=== PATIENT | female | born 1945 | race Caucasian/White ===

== ENCOUNTER 2018-02-13 12:38 | Emergency (ER) | payer MEDICARE ==
[2018-02-13 15:56] LABS: ABS Basophils 0 10^3/ul (0-0.2); ABS Eosinophils 0.1 10^3/ul (0-0.6); ABS Lymphocytes 0.9 10^3/ul (1.0-4.8); ABS Monocytes 1.1 10^3/ul (0-0.8); ABS Nucleated RBC 0 10^3/ul; Hematocrit 39 % (35-47); Hemoglobin 13.2 g/dl (12.0-16.0); Mean Corpuscular HGB Conc 34 g/dl (31-36); Mean Corpuscular Hemoglobin 30 pg (27-31); Mean Corpuscular Volume 88 fL (80-97); Mean Platelet Volume 7.8 fL (7.4-10.4); Nucleated Red Blood Cells % 0.1; Platelet Count 287 10^3/ul (150-450); Red Blood Count 4.46 10^6/ul (4.00-5.40); Red Cell Distribution Width 14 % (10.5-15); White Blood Count 9.1 10^3/ul (3.5-10.8)
[2018-02-13 16:15] LABS: Albumin 3.9 g/dL (3.2-5.2); BUN/Creatinine Ratio 21.3 (8-20); C Reactive Protein 293.75 mg/L (<8.01); Calcium 9.4 mg/dL (8.6-10.3); EGFR Non-African American 75.7 (>60); Globulin 3.8 g/dL (2-4); Potassium 3.8 mmol/L (3.5-5.0); Total Bilirubin 0.6 mg/dL (0.2-1.0); Total Protein 7.7 g/dL (6.4-8.9)
[2018-02-13] MEDS ORDERED: Acetaminophen TAB* 325 MG PO ONE (16:47)
--- NOTE | 2018-02-13 16:59 | ED ---
Respiratory - HPI Summary HPI Summary: This pt is a 72 y/o female presenting to [facility] for congestion, cough, SOB today. Pt reports her cough began on 02/10/18 and has been worsening. She describes productive cough with white sputum. She also notes sore throat and SOB today. Pt presents to the ED with a fever of 100.5F. Denies runny nose, fever, chills, dysuria, hematuria, urinary frequency, chest pain. Pt reports sick contacts, with a productive cough and small kids around her. Pt has hx of COPD and usually does not have a cough with exacerbations. - History of Current Complaint Chief Complaint: EDShortnessOfBreath Stated Complaint: GENERAL ILLNESS Time Seen by Provider: 02/13/18 16:46 Hx Obtained From: Patient, Family/Quality Assistant - Onset/Duration: Lasting Days, Still Present Timing: Constant Current Severity: Moderate Pain Intensity: 0 Character: Cough (Productive), Dyspnea at Rest Sputum Amount: Small Sputum Color: White Aggravating Factor(s): Nothing Alleviating Factor(s): Nothing Associated Signs and Symptoms: SOB - Allergy/Home Medications Allergies/Adverse Reactions: Allergies Allergy/AdvReac Type Severity Reaction Status Date / Time No Known Allergies Allergy Verified 02/13/18 13:03 PMH/Surg Hx/FS Hx/Imm Hx Cardiovascular History: Reports: Other Cardiovascular Problems/Disorders - ARRYTHMIA Respiratory History: Reports: Hx Chronic Obstructive Pulmonary Disease (COPD) - Surgical History Surgery Procedure, Year, and Place: CHOLECYSTECTOMY Infectious Disease History: No Infectious Disease History: Denies: Traveled Outside the [place] in Last 30 Days - Family History Family History: Father with MS. Mother is a smoker with lung CA. - Social History Alcohol Use: None Substance Use Type: Reports: None Smoking Status (MU): Never Smoked Tobacco Review of Systems Positive: Fever. Negative: Chills Negative: Erythema Positive: Sore Throat Negative: Chest Pain Positive: Shortness Of Breath, Cough Negative: Abdominal Pain, Vomiting, Nausea Negative: dysuria, hematuria Negative: Myalgia, Edema Negative: Rash Neurological: Other - NEGATIVE: dizziness All Other Systems Reviewed And Are Negative: Yes Physical Exam - Summary Physical Exam Summary: Constitutional: Well-developed, Well-nourished, Alert. (-) Distressed Skin: Warm, Dry. Skin is hot to touch. HENT: Normocephalic; Atraumatic Eyes: Conjunctiva normal Neck: Musculoskeletal ROM normal neck. (-) JVD, (-) Stridor, (-) Tracheal deviation Cardio: Rhythm regular, rate normal, Heart sounds normal; Intact distal pulses; The pedal pulses are 2+ and symmetric. Radial pulses are 2+ and symmetric. (-) Murmur Pulmonary/Chest wall: Effort normal. Diffuse wheezes. Abd: Soft, (-) Tenderness, (-) Distension, (-) Guarding, (-) Rebound Musculoskeletal: (-) Edema Lymph: (-) Cervical adenopathy Neuro: Alert, Oriented x3 Psych: Mood and affect Normal Triage Information Reviewed: Yes Vital Signs On Initial Exam: Initial Vitals Temp Pulse Resp BP Pulse Ox 98.5 F 80 18 131/101 93 02/13/18 12:59 02/13/18 12:59 02/13/18 12:59 02/13/18 12:59 02/13/18 12:59 Vital Signs Reviewed: Yes Diagnostics - Vital Signs Vital Signs Temp Pulse Resp BP Pulse Ox 02/13/18 16:50 82 25 154/58 90 02/13/18 16:48 80 19 90 02/13/18 16:21 100.6 F 83 20 127/51 93 02/13/18 14:18 100.5 F 88 20 148/62 89 02/13/18 12:59 98.5 F 80 18 131/101 93 - Laboratory Lab Results: Lab Results 02/13/18 02/13/18 02/13/18 Range/Units 14:49 15:42 15:42 WBC 9.1 (3.5-10.8) 10^3/ul RBC 4.46 (4.00-5.40) 10^6/ul Hgb 13.2 (12.0-16.0) g/dl Hct 39 (35-47) % MCV 88 (80-97) fL MCH 30 (27-31) pg MCHC 34 (31-36) g/dl RDW 14 (10.5-15) % Plt Count 287 (150-450) 10^3/ul MPV 7.8 (7.4-10.4) fL Neut % (Auto) 76.7 % Lymph % (Auto) 10.0 % Pine % (Auto) 11.8 % Eos % (Auto) 1.0 % Baso % (Auto) 0.5 % Absolute Neuts (auto) 7.0 (1.5-7.7) 10^3/ul Absolute Lymphs (auto) 0.9 L (1.0-4.8) 10^3/ul Absolute Monos (auto) 1.1 H (0-0.8) 10^3/ul Absolute Eos (auto) 0.1 (0-0.6) 10^3/ul Absolute Basos (auto) 0 (0-0.2) 10^3/ul Absolute Nucleated RBC 0 10^3/ul Nucleated RBC % 0.1 Sodium 130 L (135-145) mmol/L Potassium 3.8 (3.5-5.0) mmol/L Chloride 96 L (101-111) mmol/L Carbon Dioxide 26 (22-32) mmol/L Anion Gap 8 (2-11) mmol/L BUN 16 (6-24) mg/dL Creatinine 0.75 (0.51-0.95) mg/dL Est GFR ( Amer) 91.7 (>60) Est GFR (Non-Af Amer) 75.7 (>60) BUN/Creatinine Ratio 21.3 H (8-20) Glucose 137 H (70-100) mg/dL Lactic Acid (0.5-2.0) mmol/L Calcium 9.4 (8.6-10.3) mg/dL Total Bilirubin 0.60 (0.2-1.0) mg/dL AST 16 (13-39) U/L ALT 13 (7-52) U/L Alkaline Phosphatase 60 (34-104) U/L Troponin I 0.01 (<0.04) ng/mL C-Reactive Protein 293.75 H (<8.01) mg/L B-Natriuretic Peptide (<=100) pg/mL Total Protein 7.7 (6.4-8.9) g/dL Albumin 3.9 (3.2-5.2) g/dL Globulin 3.8 (2-4) g/dL Albumin/Globulin Ratio 1.0 (1-3) Influenza A (Rapid) Negative (Negative) Influenza B (Rapid) Negative (Negative) 02/13/18 02/13/18 Range/Units 15:42 15:42 WBC (3.5-10.8) 10^3/ul RBC (4.00-5.40) 10^6/ul Hgb (12.0-16.0) g/dl Hct (35-47) % MCV (80-97) fL MCH (27-31) pg MCHC (31-36) g/dl RDW (10.5-15) % Plt Count (150-450) 10^3/ul MPV (7.4-10.4) fL Neut % (Auto) % Lymph % (Auto) % Pine % (Auto) % Eos % (Auto) % Baso % (Auto) % Absolute Neuts (auto) (1.5-7.7) 10^3/ul Absolute Lymphs (auto) (1.0-4.8) 10^3/ul Absolute Monos (auto) (0-0.8) 10^3/ul Absolute Eos (auto) (0-0.6) 10^3/ul Absolute Basos (auto) (0-0.2) 10^3/ul Absolute Nucleated RBC 10^3/ul Nucleated RBC % Sodium (135-145) mmol/L Potassium (3.5-5.0) mmol/L Chloride (101-111) mmol/L Carbon Dioxide (22-32) mmol/L Anion Gap (2-11) mmol/L BUN (6-24) mg/dL Creatinine (0.51-0.95) mg/dL Est GFR ( Amer) (>60) Est GFR (Non-Af Amer) (>60) BUN/Creatinine Ratio (8-20) Glucose (70-100) mg/dL Lactic Acid 1.7 (0.5-2.0) mmol/L Calcium (8.6-10.3) mg/dL Total Bilirubin (0.2-1.0) mg/dL AST (13-39) U/L ALT (7-52) U/L Alkaline Phosphatase (34-104) U/L Troponin I (<0.04) ng/mL C-Reactive Protein (<8.01) mg/L B-Natriuretic Peptide 100 (<=100) pg/mL Total Protein (6.4-8.9) g/dL Albumin (3.2-5.2) g/dL Globulin (2-4) g/dL Albumin/Globulin Ratio (1-3) Influenza A (Rapid) (Negative) Influenza B (Rapid) (Negative) Result Diagrams: 02/13/18 15:42 02/13/18 15:42 Lab Statement: Any lab studies that have been ordered have been reviewed, and results considered in the medical decision making process. - Radiology Chest XR Radiology Interpretation Completed By: Radiologist Summary of Radiographic Findings: IMPRESSION: COPD. Dr. Ray has reviewed this report. - EKG 13:41 Cardiac Rate: NL - at 78 bpm EKG Rhythm: Sinus Rhythm Summary of EKG Findings: No STEMI. Re-Evaluation - Re-Evaluation First Eval Re-Evaluation Time: 19:25 Comment: Family is comfortable with pt being discharged. Pt appears nondistressed. Disposition - Course Assessment/Plan: Pt is a 72 y/o female, with hx of COPD, who presents to the ED for cough and SOB today. Pt reports her cough began on 02/10/18 and has been worsening. She describes productive cough with white sputum. She also notes sore throat and SOB today. Pt presents to the ED with a fever of 100.5F. Labs show CRP of 293. Influenza A and B are both negative. Chest XR shows COPD. In the ED course the pt was given tylenol, duoneb, azithromycin, solu-medrol. Despite the chest XR being negative, based on pt's fever and her lung sounds I suspect early pneumonia. Pt has a nebulizer at home. Pt does wear oxygen at home but only at night. Pt will be discharged home and is recommended to wear her oxygen during the day. Family is comfortable with pt being discharged. Pt appears nondistressed. She will follow up with her PCP in 1-2 days. Pt was also instructed to return to the ED for any worsening or new symptoms. - Diagnoses Provider Diagnoses: Pneumonia Discharge - Sign-Out/Discharge Documenting (check all that apply): Patient Departure - Discharge home - Discharge Plan Condition: Stable Disposition: HOME Prescriptions: Albuterol 2.5MG/3ML (0.083%)* [Ventolin 2.5 MG/3 ML NEB.CHANDNI*] 2.5 mg INH Q4H PRN #60 neb.[email or web address] PRN Reason: Shortness Of Breath predniSONE TAB* [Deltasone TAB*] 50 mg PO DAILY #5 tab Patient Education Materials: Pneumonia (ED) Referrals: Gustavo Tavares MD [Primary Care Provider] - Additional Instructions: You are to wear your oxygen during the day during this illness. Follow up with your primary care provider in 1-2 days. RETURN TO THE EMERGENCY DEPARTMENT FOR CHANGING OR WORSENING SYMPTOMS. - Attestation Statements Document Initiated by Scribe: Yes Documenting Scribe: Emily Caldwell Provider For Whom Scribe is Documenting (Include Credential): Caleb Ray MD Scribe Attestation: I, Emily Caldwell, scribed for Caleb Ray MD on 02/13/18 at 1935. Status of Scribe Document: Ready
[2018-02-13] MEDS ORDERED: methylPREDNISolone 125 MG* 2 ML VIAL IV ONE (17:03)
[2018-02-13] MEDS ORDERED: Azithromycin TAB* 250 MG PO ONE (17:03)
[2018-02-13] MEDS ORDERED: Albuterol/Ipratropium NEB.SOL* Albuterol 2.5 MG/Ipratropium 0.5 MG 3 ML INH ONE ×2 (17:22→19:26)
[2018-02-13] MEDS ORDERED: Albuterol/Ipratropium NEB.SOL* Albuterol 2.5 MG/Ipratropium 0.5 MG 3 ML ONE (17:24)
[2018-02-13 19:56] VITALS: BP 131/76
== END 2018-02-13 19:54 | disposition home or self-care (01) ==
LOC: ED 12:38
DX: J18.9 Pneumonia, unspecified organism (principal); R05 Cough; R06.02 Shortness of breath; R50.9 Fever, unspecified
CPT/HCPCS: 36415; 71046; 80053; 83605; 83880; 84484; 85025; 86140; 87040; 93005; 96374; 99284; A9270-GY; J2930